=== PATIENT | male | born 1975 | race Caucasian/White ===

== ENCOUNTER → 2016-12-03 | Outpatient (CLI) | payer OTHER ==
[~2016-12-03] MED LIST: BACTRIM DS 8001 TA1 PO; CIPROFLOXACIN500 MG PO; CLINDAMYCIN HC300 MG PO; CORTISPORIN SUS10 ML OT; CYCLOBENZAPRINE5 M3 PO; DAYPRO600 M1 PO; FLAGYL500 MG PO; HYDROCODONE BIT1 T11 PO; Motrin,Rufen800 MG PO; NAPROSYN500 MG PO; ROBAXIN750 MG PO; TESTOSTERO200 MG/10 IM; TRAMADOL HCL50 MG PO; VIBRAMYCIN100 MG PO; ZANTAC 150150 MG PO
== END | disposition home or self-care (01) ==
LOC: MRI 08:00
DX: S86.911A Strain of unspecified muscle(s) and tendon(s) at lower leg level, right leg, initial encounter (principal); S93.601A Unspecified sprain of right foot, initial encounter; M25.561 Pain in right knee; X58.XXXA Exposure to other specified factors, initial encounter; Y93.89 Activity, other specified; Y92.89 Other specified places as the place of occurrence of the external cause; Y99.8 Other external cause status

== ENCOUNTER 2017-12-05 21:54 | Emergency (ER) | payer OTHER ==
[~2017-12-05] VITALS: Ht 180.3 cm; Wt 107.6 kg
== END 2017-12-06 01:14 | disposition home or self-care (01) ==
LOC: ED 21:54
DX: S90.32XA Contusion of left foot, initial encounter (principal); F10.10 Alcohol abuse, uncomplicated; Z88.0 Allergy status to penicillin; Z91.030 Bee allergy status; Z79.899 Other long term (current) drug therapy; W19.XXXA Unspecified fall, initial encounter; Y93.89 Activity, other specified; Y92.89 Other specified places as the place of occurrence of the external cause; Y99.8 Other external cause status